=== PATIENT | male | born 1945 | race Caucasian/White ===

== ENCOUNTER 2017-01-09 11:22 | Inpatient (IN) | payer MEDICARE, BC ==
[~2017-01-09] VITALS: Ht 175.3 cm; Wt 92.7 kg
[2017-01-09] MEDS ORDERED: ATOR10TA9 PO (12:16)
[2017-01-09] MEDS ORDERED: PANT40TA5 PO (12:25)
[2017-01-09] MEDS ORDERED: LISI-170 PO (12:25)
[2017-01-09] MEDS ORDERED: ASPI-496 PO (12:25)
[2017-01-09] MEDS ORDERED: TAMS0.4C2 PO (12:25)
[2017-01-09 14:00] VITALS: BP 149/73
[2017-01-09] MEDS ORDERED: morphine SULFATE 10 MG/ML, 1ML IVPush PRN (14:30)
[2017-01-09] MEDS ORDERED: CEFAZOLIN PMX 2GM/50ML 50 ML IVPB ONE (14:30)
[2017-01-09] MEDS ORDERED: PLEASE ENTER ALLERGIES MC SCH ×2 (15:00)
[2017-01-09] MEDS ORDERED: FENTANYL PF 100 MCG/2ML ONE ×3 (16:49→18:45)
[2017-01-09] MEDS ORDERED: PROPOFOL 10 MG/ML, 20ML ONE (16:51)
[2017-01-09] MEDS ORDERED: ROCURONIUM 10 MG/ML ONE (16:51)
[2017-01-09] MEDS ORDERED: SUCCINYLCHOLINE 20 MG/ML, 10ML ONE (16:51)
[2017-01-09] MEDS ORDERED: ONDANSETRON 2MG/ML, 2ML ONE (16:51)
[2017-01-09] MEDS ORDERED: CEFAZOLIN PMX 2GM/100ML 100 ML IVPB ONE (16:51)
[2017-01-09] MEDS ORDERED: LIDOCAINE-MPF 2% ,5ML ONE (16:51)
[2017-01-09] MEDS ORDERED: MEPERIDINE/PF 25MG/0.5ML IVPush PRN (17:30)
[2017-01-09] MEDS ORDERED: ONDANSETRON 2MG/ML, 2ML IVPush PRN ×2 (17:30→19:30)
[2017-01-09] MEDS ORDERED: LABETALOL 5MG/ML, 20ML IV PRN (17:30)
[2017-01-09] MEDS ORDERED: PROMETHAZINE 25 MG/ML, 1ML IV PRN (17:30)
[2017-01-09] MEDS ORDERED: OXYcodone 5 MG/5 ML ORAL.SOL UDC PO PRN (17:30)
[2017-01-09] MEDS ORDERED: LORazepam 2 MG/ML, 1ML IVPush PRN (17:30)
[2017-01-09] MEDS ORDERED: HYDROmorphone 1 MG/ML, 1ML IV PRN (17:30)
[2017-01-09] MEDS ORDERED: ACETAMINOPHEN 325 MG TABLET PO PRN ×2 (17:30→19:30)
[2017-01-09] MEDS ORDERED: hydrALAzine 20 MG/ML, 1ML IV PRN (17:30)
[2017-01-09] MEDS ORDERED: MIDAZOLAM 1 MG/ML, 2ML IV PRN (17:30)
[2017-01-09 18:09] LABS: CYTOLOGY BODY FLUID RECD INTO PATHOLOGY; CYTOLOGY BODY FLUID SOURCE OTHER - SEE COMMENT
[2017-01-09] MEDS ORDERED: OXYcodone 5 MG/5 ML ORAL.SOL UDC ONE (18:19)
[2017-01-09] MEDS ORDERED: ACETAMINOPHEN 650 MG/20.3 ML UDC ONE (18:40)
[2017-01-09] MEDS: FENTANYL PF 100 MCG/2ML IV PRN ×2 (18:47→18:54)
[2017-01-09] MEDS ORDERED: DIPHENHYDRAMINE 25 MG CAPSULE PO PRN (19:30)
[2017-01-09] MEDS ORDERED: LACTATED RINGERS 1,000 ML IV SCH (19:30)
[2017-01-09] MEDS ORDERED: ONDANSETRON 4 MG TABLET PO PRN (19:30)
[2017-01-09 20:29] VITALS: BP 135/82
[2017-01-09] MEDS: DOCUSATE 100 MG CAPSULE PO SCH (22:06)
[2017-01-09] MEDS: LACTATED RINGERS 1,000 ML IV SCH (22:06)
[2017-01-10] VITALS: BP 119/56
[2017-01-10 05:06] LABS: HEMATOCRIT 35.2 % (39.2-51.8); HEMOGLOBIN 11.8 g/dL (13.7-18.0)
[2017-01-10 05:18] LABS: BLOOD UREA NITROGEN 19 mg/dL (7-18)
[2017-01-10] MEDS: LACTATED RINGERS 1,000 ML IV SCH ×2 (05:28→12:28)
[2017-01-10 07:16] VITALS: BP 121/72
[2017-01-10] MEDS: DOCUSATE 100 MG CAPSULE PO SCH (08:33)
[2017-01-10 14:12] VITALS: BP 150/69
[2017-01-10 15:15] VITALS: BP 141/73
== END 2017-01-10 15:28 | disposition home or self-care (01) | DRG 660 ==
LOC: 4NOR 11:22
PROVIDERS: ADMIT Urology; ATTEND Urology
PROC: BT1D1ZZ Fluoroscopy of Right Kidney, Ureter and Bladder using Low Osmolar Contrast (ICD-10-PCS; 2017-01-09)
PROC: 0TB38ZX Excision of Right Kidney Pelvis, Via Natural or Artificial Opening Endoscopic, Diagnostic (ICD-10-PCS; 2017-01-09)
PROC: 0TCB8ZZ Extirpation of Matter from Bladder, Via Natural or Artificial Opening Endoscopic (ICD-10-PCS; 2017-01-09)
PROC: 0TC38ZZ Extirpation of Matter from Right Kidney Pelvis, Via Natural or Artificial Opening Endoscopic (ICD-10-PCS; 2017-01-09)
PROC: 0T738DZ Dilation of Right Kidney Pelvis with Intraluminal Device, Via Natural or Artificial Opening Endoscopic (ICD-10-PCS; principal; 2017-01-09 16:30)
DX: R31.0 Gross hematuria (principal); R71.0 Precipitous drop in hematocrit; E78.5 Hyperlipidemia, unspecified; N28.89 Other specified disorders of kidney and ureter; I10 Essential (primary) hypertension; K21.9 Gastro-esophageal reflux disease without esophagitis; N32.89 Other specified disorders of bladder; N40.0 Benign prostatic hyperplasia without lower urinary tract symptoms; Z88.0 Allergy status to penicillin; Z88.5 Allergy status to narcotic agent
CPT/HCPCS: 36415; 76770; 80048; 85025; 85610; 85730; 88112; 88305; 93005; J2405; J2704; J3010; J3490; C1758; C1769; C2617; J0330; J0690; J7120